=== PATIENT | female | born 1985 | race Caucasian/White ===

== ENCOUNTER 2019-10-17 10:19 | Emergency (ER) | payer OTHER, SELFPAY ==
--- NOTE | ~2019-10-17 | XR_ITS ---
XR foot LT 2V DATE: 10/17/2019 11:03 INDICATION: Rolled ankle and foot. Pain and swelling of left ankle and left foot TECHNIQUE: AP and lateral views COMPARISON: None FINDINGS: There is a small bony density near the distal lateral aspect of the calcaneus, of uncertain significance; diffusion diagnosis includes accessory ossicle versus fracture. There is mild overlyin g soft tissue swelling in this area.. Additional radiographic views are recommended, with CT if neces leandra. No other fracture or dislocation. IMPRESSION: Incomplete examination. Additional radiographs including oblique views are recommended fo r further evaluation of focal lateral soft tissue swelling and indeterminate bony density over the di stal lateral aspect of the calcaneus Reviewed, dictated and finalized at location A. IMPRESSION: Incomplete examination. Additional radiographs including oblique vi ews are recommended for further evaluation of focal lateral soft tissue swellin g and indeterminate bony density over the distal lateral aspect of the calcaneu s
--- NOTE | ~2019-10-17 | XR_ITS ---
XR ankle LT 2V DATE: 10/17/2019 11:03 INDICATION: Rolled ankle and foot. Pain and swelling after missed step. TECHNIQUE: 2 views COMPARISON: None FINDINGS: There is lateral soft tissue swelling. No fracture or dislocation of the ankle or disruptio n of the ankle mortise is detected. IMPRESSION: Lateral soft tissue swelling; no fracture or dislocation is detected Reviewed, dictated and finalized at location A. IMPRESSION: Lateral soft tissue swelling; no fracture or dislocation is detecte d
--- NOTE | ~2019-10-17 | XR_ITS ---
XR foot LT 2V DATE: 10/17/2019 11:42 INDICATION: Rolled ankle. Pain and swelling of ankle and foot laterally TECHNIQUE: 3 views COMPARISON: None FINDINGS: There is soft tissue swelling at the lateral aspect of the hindfoot and suggestion of a avu lsion fracture at the distal lateral aspect of the calcaneus. This would be better demonstrated by CT as clinically appropriate. IMPRESSION: Probable avulsion fracture of distal lateral aspect of calcaneus, with overlying soft tis helen swelling Reviewed, dictated and finalized at location A. IMPRESSION: Probable avulsion fracture of distal lateral aspect of calcaneus, w ith overlying soft tissue swelling
[2019-10-17 10:35] VITALS: BP 121/54; PULSE 80; RESP 16; TEMP 36.8; O2SAT 100
--- NOTE | 2019-10-17 11:11 | PC.NURSE ---
Report to HARRIET Chavira to continue care.
--- NOTE | 2019-10-17 11:29 | ED.GENADULT ---
HPI - General Adult General Chief complaint: Extremity Injury, Lower Stated complaint: TWISTED FOOT Time Seen by Provider: 10/17/19 11:13 Source: patient Mode of arrival: ambulatory Limitations: no limitations History of Present Illness HPI narrative: Patient is a 34-year-old female who presents to emergency department for evaluation of ankle injury that occurred on noted bruising and swelling moderate aching pain worse with weightbearing and activity patient. Has not been seen for this injury. Patient notes that she has been bearing weight. Denies radicular symptoms or paresthesias. Presents per private vehicle in no distress Related Data Home Medications Medication Instructions Recorded Confirmed alprazolam 10/17/19 dextroamphetamine-amphetamine PO 10/17/19 venlafaxine mg PO 10/17/19 Allergies Allergy/AdvReac Type Severity Reaction Status Date / Time tramadol Allergy Mild itch Verified 10/17/19 10:32 codeine Allergy Unknown ITCHING Unverified 10/17/19 10:32 NAUSEA Review of Systems Review of Systems: All systems reviewed & are unremarkable except as noted in HPI and below PMFSH Past Medical History Medical History (Updated 10/17/19 @ 12:10 by Amanuel Chavarria PA-C) Anxiety Attention deficit disorder Social History Social History Gender identity (if verbalized by the patient): Female Exam Narrative: Exam Narrative: GENERAL: Well-appearing, well-nourished, and in no acute distress. HEAD: Normocephalic, atraumatic. EYES: PERRLA and EOMI. ENT: Nares clear, no rhinorrhea or epistaxis. Mucous membranes moist. CHEST: Clear to auscultation. No respiratory distress. No wheezes rales or rhonchi HEART: Regular rate and rhythm. No murmur heard. Normal peripheral pulses. EXTREMITIES: Normal range of motion. No edema. Tenderness of the left ankle and foot laterally with swelling into the foot and around the ankle no erythema SKIN: Warm, dry, no rash. NEURO: No focal deficits. Alert and oriented x3. Neurovascularly intact PSYCH: Normal mood and affect. Course Course Emergency Course: Patient aware of case findings treatment plan and discussion with orthopedic surgeon Consultations Consultation #1: Discussed case with orthopedic surgeon who would like the patient to be splinted and to follow in clinic Date: 10/17/19 Time: 12:08 Vital Signs Vital signs: Vital Signs Temperature 98.2 F 10/17/19 10:35 Pulse Rate 80 10/17/19 10:35 Respiratory Rate 16 10/17/19 10:35 Blood Pressure 121/54 L 10/17/19 10:35 Pulse Oximetry 100 10/17/19 10:35 Temperature 98.2 F 10/17/19 10:35 Pulse Rate 80 10/17/19 10:35 Respiratory Rate 16 10/17/19 10:35 Blood Pressure 121/54 L 10/17/19 10:35 Pulse Oximetry 100 10/17/19 10:35 Medical Decision Making MDM Narrative Medical decision making narrative: Patients injury or pain is consistent with musculoskeletal etiology. No signs of neurological or vascular compromise on exam. Compartments and tisues are soft without signs of compartment syndrome. Pain is felt appropriate for further evaluation on an outpatient basis. Vital Signs Vital Signs: Vital Signs Temperature 98.2 F 10/17/19 10:35 Pulse Rate 80 10/17/19 10:35 Respiratory Rate 16 10/17/19 10:35 Blood Pressure 121/54 L 10/17/19 10:35 Pulse Oximetry 100 10/17/19 10:35 Temperature 98.2 F 10/17/19 10:35 Pulse Rate 80 10/17/19 10:35 Respiratory Rate 16 10/17/19 10:35 Blood Pressure 121/54 L 10/17/19 10:35 Pulse Oximetry 100 10/17/19 10:35 Imaging Data My impression: ITS Impressions Ankle X-Ray 10/17/19 11:28 IMPRESSION: Lateral soft tissue swelling; no fracture or dislocation is detected Foot X-Ray 10/17/19 11:29 IMPRESSION: Incomplete examination. Additional radiographs including oblique views are recommended for further evaluation of focal lateral soft ti
[2019-10-17 12:48] VITALS: BP 123/67; PULSE 86; RESP 16; TEMP 36.6; O2SAT 97
== END 2019-10-17 12:49 | disposition home or self-care (01) ==
PROVIDERS: Emergency Provider Emergency Medicine; PCP Nurse Practitioner Family
DX: S92.002A Unspecified fracture of left calcaneus, initial encounter for closed fracture (principal); F41.9 Anxiety disorder, unspecified; F98.8 Other specified behavioral and emotional disorders with onset usually occurring in childhood and adolescence; X58.XXXA Exposure to other specified factors, initial encounter
CPT/HCPCS: 29515; 73600; 73620; 99284

== ENCOUNTER 2020-10-22 11:21 | Emergency (ER) | payer OTHER, SELFPAY ==
[2020-10-22 11:33] VITALS: BP 130/76; PULSE 79; RESP 16; TEMP 36.2; O2SAT 99
--- NOTE | 2020-10-22 11:45 | ED.SKABFB ---
HPI - Skin/Abscess/Foreign Bdy General Chief complaint: Skin/Abscess/Foreign Body Stated complaint: right leg redness/painful Time Seen by Provider: 10/22/20 11:35 Source: patient Mode of arrival: ambulatory Limitations: no limitations History of Present Illness HPI narrative: Katya Tracy is a 35 yo female with a PMH of depression, ADD, anemia, [facility] with a developing abscess on her medial right lower leg. She said she had area of soreness that she put pressure on last night and when she woke up today the area was enlarged and inflamed. Central area measures 3 x 3 and half, erythematous 13 by9 cm Related Data Home Medications Medication Instructions Recorded Confirmed alprazolam 1 mg PO TID 10/22/20 10/22/20 dextroamphetamine-amphetamine 1 mg PO DAILY 10/22/20 10/22/20 ferrous sulfate 1 mg PO BID 10/22/20 10/22/20 venlafaxine 1 mg PO DAILY 10/22/20 10/22/20 Allergies Allergy/AdvReac Type Severity Reaction Status Date / Time tramadol Allergy Mild itch Verified 10/22/20 11:43 codeine Allergy Unknown ITCHING Verified 10/22/20 11:43 NAUSEA Review of Systems Review of Systems: Narrative: CONSTITUTIONAL: Denies fever, chills, sweats. EYES: Denies visual changes, redness, discharge. ENT: Denies rhinorrhea, congestion, sore throat, otalgia. CARDIOVASCULAR: Denies chest pain, palpitations, edema. RESPIRATORY: Denies dyspnea, wheezing, cough GASTROINTESTINAL: Denies abdominal pain, nausea, vomiting, diarrhea. GENITOURINARY: Denies dysuria, hematuria, abnormal discharge SKIN: Denies rash or itching. He has developing abscess on right medial proximal lower leg NEUROLOGIC: Denies numbness, or focal weakness. PSYCHIATRIC: Denies anxiety or depression. [facility] Past Medical History Medical History Anemia Anxiety Attention deficit disorder Depression Social History Social History (Updated 10/22/20 @ 11:49 by Jessenia Floyd CNP) Smoking packs per day: 0.5 Smoking cigarettes per day: 10.0 Smoking status: Current every day smoker Alcohol intake: current Gender identity (if verbalized by the patient): Female Comments At time of signature, I agree with nursing past medical, surgical, social and family history. There is no relevant family history pertinent to the presenting complaint. Exam Narrative: Exam Narrative: GENERAL: This is a well-nourished, well-developed patient, in mild distress. HEAD: normocephalic, atraumatic. EYES: Sclera clear/white. Vision is grossly intact. EARS: External ears normal. Hearing grossly intact. NOSE: External nose normal without nasal discharge, nares without redness, no rhinorrhea. THROAT: Mucous membranes moist, NECK: Neck supple, non-tender CARDIOVASCULAR: Regular rate and rhythm without murmurs, gallops, or rubs. RESPIRATORY: Clear to auscultation. Breath sounds equal bilaterally. No wheezes, rales, or rhonchi. GASTROINTESTINAL: Abdomen soft, non-tender, SKIN: warm, intact with developing abscess on right proximal medial lower leg, he has indurated area that is 3 x 3.5f, but erythema that is much larger at 13 x 9 NEURO: awake, alert, and oriented to person, place and time. There were no obvious focal neurologic abnormalities. Steady gait EXTREMITIES: Normal range of motion. BACK: Nontender without deformity Course Course Emergency Course: Patient is 35-year-old female who comes with a large area of induration and erythema on her right medial leg obtain culture specimen with 18-gauge needle Started on Bactrim and Keflex Directions given about care of wound Vital Signs Vital signs: Vital Signs Temperature 97.2 F L 10/22/20 11:33 Pulse Rate 79 10/22/20 11:33 Respiratory Rate 16 10/22/20 11:33 Blood Pressure 130/76 10/22/20 11:33 Pulse Oximetry 99 10/22/20 11:33 Temperature 97.2 F L 10/22/20 11:33 Pulse Rate 79 10/22/20 11:33 Respiratory Rate 16 10/22/20 11:33 B
== END 2020-10-22 12:01 | disposition home or self-care (01) ==
PROVIDERS: Emergency Provider Nurse Practitioner; PCP Nurse Practitioner Family
DX: L03.115 Cellulitis of right lower limb (principal); F17.210 Nicotine dependence, cigarettes, uncomplicated; F41.9 Anxiety disorder, unspecified; F32.9 Major depressive disorder, single episode, unspecified; F98.8 Other specified behavioral and emotional disorders with onset usually occurring in childhood and adolescence
CPT/HCPCS: 10160; 87070; 87075; 87147; 87186; 87205; 99213; G0463